=== PATIENT | male | born 1945 | race Caucasian/White ===

== ENCOUNTER 2019-03-25 | Emergency (ER) | payer MEDICARE ==
[2019-03-25] MEDS ORDERED: GENTAMICIN SULF5 ML OS (11:13)
== END 2019-03-25 11:20 | disposition home or self-care (01) ==
PROC: 08C1XZZ Extirpation of Matter from Left Eye, External Approach (ICD-10-PCS; principal; 2019-03-25)
DX: T15.82XA Foreign body in other and multiple parts of external eye, left eye, initial encounter (principal); X58.XXXA Exposure to other specified factors, initial encounter